=== PATIENT | male | born 1945 | race Caucasian/White ===

== ENCOUNTER 2023-10-22 08:32 | Day surgery (SDC) | payer MEDICARE, BC ==
[~2023-10-22] VITALS: Ht 188 cm; Wt 106.6 kg
[2023-10-22] VITALS (10 sets, daily range): BP systolic 123–160; BP diastolic 57–99; PULSE 50–53; RESP 14–16; TEMP 97.8; O2SAT 95–98
[2023-10-22] MEDS ORDERED: LORazepam 0.5 MG tablet PO PRN (08:55)
[2023-10-22] MEDS ORDERED: normal saline 1,000 ML IV SCH (08:55)
[2023-10-22] MEDS ORDERED: diphenhydrAMINE 25mg capsule PO PRN (08:55)
[2023-10-22] MEDS ORDERED: TADA20TA43 PO (09:05)
[2023-10-22] MEDS ORDERED: PANT40TA54 PO (09:05)
[2023-10-22] MEDS ORDERED: AZEL6DRO5 EACHEYE (09:05)
[2023-10-22] MEDS ORDERED: LOSA25TA41 PO (09:05)
[2023-10-22] MEDS ORDERED: ROSU5TAB12 PO (09:05)
[2023-10-22] MEDS ORDERED: FLO0.4C PO (09:05)
[2023-10-22 09:49] LABS: ALBUMIN 3.7 G/DL (3.4-5.0); ANION GAP 9 (8-16); BLOOD UREA NITROGEN 20 MG/DL (7-18); BUN/CREATININE RATIO 17.5 (10.0-20.0); CALCIUM 9.1 MG/DL (8.5-10.1); CHLORIDE 105 MMOL/L (99-107); CREATININE 1.14 MG/DL (0.60-1.10); GLUCOSE 95 MG/DL (70-104); SODIUM 138 MMOL/L (135-145); TOTAL CARBON DIOXIDE 24.4 MMOL/L (24-32); eCRCL 64 ML/MIN; eGFR 62 ML/MIN
[2023-10-22 09:50] LABS: POTASSIUM 4.4 MMOL/L (3.5-5.1)
[2023-10-22 10:04] LABS: BASOPHILS % (AUTO) 0.3 % (0-1); EOSINOPHILS # (AUTO) 0.1 X10'3 (0-0.9); EOSINOPHILS % (AUTO) 0.8 % (0-6); HEMATOCRIT 44.8 % (42.0-52.0); LYMPHOCYTES # (AUTO) 1.2 X10'3 (1.1-4.8); LYMPHOCYTES % (AUTO) 16.4 % (21-51); MEAN CORPUSCULAR HEMOGLOBIN 30.6 PG (27.0-31.0); MEAN CORPUSCULAR HGB CONC 33.4 g/dL (33.0-36.5); MEAN CORPUSCULAR VOLUME 91.6 FL (78-98); MEAN PLATELET VOLUME 9.7 FL (7.4-10.4); MONOCYTES # (AUTO) 0.4 X10'3 (0-0.9); MONOCYTES % (AUTO) 5.3 % (2-12); NEUTROPHILS # (AUTO) 5.8 X10'3 (1.8-7.7); NEUTROPHILS % (AUTO) 77.2 % (42-75); PLATELET COUNT 101 X10'3 (140-440); RED BLOOD COUNT 4.89 X10'6 (4.70-6.10); RED CELL DISTRIBUTION WIDTH 14.7 % (11.5-14.5); WHITE BLOOD COUNT 7.5 X10'3 (4.5-11.0)
[2023-10-22] MEDS ORDERED: LIDOcaine 1% (10mg/ml) 2ml vial ONE (10:23)
[2023-10-22] MEDS ORDERED: heparin 1,000unit/ml 10ml vial 10 ML ONE (10:23)
[2023-10-22] MEDS ORDERED: midazolam 1 mg/ML 2ml injection ONE (10:23)
[2023-10-22] MEDS ORDERED: verapamil 2.5 mg/ml inj IV ONE (10:23)
[2023-10-22] MEDS ORDERED: fentaNYL/PF 50MCG/1 ML 2ML syringe ONE (10:23)
[2023-10-22] MEDS ORDERED: iohexol 350MG/ML 100ml bottle IV ONE (10:24)
[2023-10-22] MEDS ORDERED: nitroGLYCERIN 500mcg/5mL D5W 5 ML IV ONE (10:24)
[2023-10-22] MEDS ORDERED: iohexol 350 MG/ML 50ML vial IV ONE (11:16)
[2023-10-22 12:26] LABS: ISTAT HGB ART 14.3 g/dl (14.0-17.9); ISTAT Hct ART 42 %PCV (42-52); ISTAT O2 SATURATION ARTERIAL 97 % (95-98); ISTAT SOURCE ART
[2023-10-22 13:03] LABS: ISTAT HGB MIX 14.3 g/dl (14.0-17.9); ISTAT Hct MIX 42 %PCV (42-52); ISTAT O2 SATURATION MIX VENOUS 71 % (60-80); ISTAT SOURCE VEN
[2023-10-22] MEDS ORDERED: normal saline 1000ml 1,000 ML IV SCH (13:20)
== END 2023-10-22 16:50 | disposition home or self-care (01) ==
LOC: SSTAY O 08:32
PROVIDERS: ATTEND Internal Medicine Cardiovascular Disease
DX: I35.1 Nonrheumatic aortic (valve) insufficiency (principal); I25.10 Atherosclerotic heart disease of native coronary artery without angina pectoris; K21.9 Gastro-esophageal reflux disease without esophagitis; D69.6 Thrombocytopenia, unspecified; E53.9 Vitamin B deficiency, unspecified; E73.1 Secondary lactase deficiency; E78.2 Mixed hyperlipidemia; G62.9 Polyneuropathy, unspecified; M17.11 Unilateral primary osteoarthritis, right knee; I12.9 Hypertensive chronic kidney disease with stage 1 through stage 4 chronic kidney disease, or unspecified chronic kidney disease; N18.2 Chronic kidney disease, stage 2 (mild); G90.9 Disorder of the autonomic nervous system, unspecified; N40.0 Benign prostatic hyperplasia without lower urinary tract symptoms; Z86.73 Personal history of transient ischemic attack (TIA), and cerebral infarction without residual deficits; Z79.82 Long term (current) use of aspirin; Z79.899 Other long term (current) drug therapy; Z85.828 Personal history of other malignant neoplasm of skin; Z86.010 Personal history of colon polyps; Z98.890 Other specified postprocedural states; Z88.1 Allergy status to other antibiotic agents; Z88.8 Allergy status to other drugs, medicaments and biological substances; Z72.89 Other problems related to lifestyle; Z82.3 Family history of stroke
CPT/HCPCS: 36415; 76937; 80048; 82803; 85014; 85025; 85610; 93005; 93460; 93567; 99152; 99153; J1644; J2250; J3010; J3490; J7030; Q0163; Q9967; A6258; A6449; C1725; C1751; C1769; C1894